=== PATIENT | female | born 1960 | race Hispanic/Latino ===

== ENCOUNTER → 2020-06-04 13:43 | Outpatient (CLI) | payer MEDICARE, SELFPAY ==
--- NOTE | 2020-06-04 13:51 | DI.US.S_ITS ---
PROCEDURE: US THYROID INDICATIONS: osteoporosis Nontoxic single thyroid nodule TECHNIQUE: Real-time scanning was performed of the thyroid gland, with image documentation. COMPARISON: None. FINDINGS: Right: Thyroid lobe measures 5 x 1.6 x 1.6 cm, and is homogeneous in echotexture. Left: Thyroid lobe measures 5.1 x 1.8 x 1.4 cm, and is homogenous in echotexture. Isthmus: 7 mm thick. Nodule number: 1 Location: Right mid Size: 0.7 x 0.6 x 0.6 cm. Composition: Predominantly cystic Echogenicity: Hypoechoic Shape: wider than tall. Margins: Smooth Echogenic foci: None Total points: 2 ACR TI-RADS category: TR 2, not suspicious Nodule number: 2 Location: Left mid inferior Size: 1 x 0.9 x 0.8 cm. Composition: Solid Echogenicity: Isoechoic Shape: wider than tall. Margins: Smooth Echogenic foci: None Total points: 3 ACR TI-RADS category: TR 3, mildly suspicious Nodule number: 3 Location: Left mid Size: 0.8 x 0.7 x 0.5 cm. Composition: Solid Echogenicity: Hyperechoic Shape: wider than tall. Margins: Smooth Echogenic foci: None Total points: 3 ACR TI-RADS category: TR 3, mildly suspicious Nodule number: 4 Location: Isthmus Size: 0.9 x 0.7 x 0.4 cm. Composition: Predominantly solid Echogenicity: Isoechoic Shape: wider than tall. Margins: Smooth Echogenic foci: None Total points: 3 ACR TI-RADS category: TR 3, mildly suspicious IMPRESSION: Several small thyroid nodules. No nodules meeting criteria for recommended follow-up ultrasound. ACR TI-RADS definitions and recommendations: TI-RADS 1 (benign): 0 points. FNA not needed. TI-RADS 2 (not suspicious): 2 points. FNA not needed. TI-RADS 3 (mildly suspicious): 3 points. * FNA if 2.5 cm or larger, follow up if 1.5 cm or larger (at 1, 3, and 5 years). TI-RADS 4 (moderately suspicious): 4-6 points. * FNA if 1.5 cm or larger, follow up if 1 cm or larger (at 1, 2, 3, and 5 years). TI-RADS 5 (highly suspicious): 7 points or more. * FNA if 1 cm or larger, follow up if 0.5 cm or larger (every year for 5 years). Dictated by: Nico Keene M.D. on 06/06/2020 at 7:06 Approved by: Nico Keene M.D. on 06/06/2020 at 7:17
== END ==
PROVIDERS: PCP Nurse Practitioner Family; Referring Provider Nurse Practitioner Family; Visit Provider Nurse Practitioner Family
DX: E04.2 Nontoxic multinodular goiter; M85.852 Other specified disorders of bone density and structure, left thigh; Z78.0 Asymptomatic menopausal state; Z72.0 Tobacco use
CPT/HCPCS: 76536; 77080

== ENCOUNTER → 2020-06-22 11:38 | Outpatient (CLI) | payer MEDICARE, SELFPAY ==
--- NOTE | 2020-06-22 11:40 | DI.RAD.S_ITS ---
PROCEDURE: XR LUMBAR SPINE MIN 4V INDICATIONS: PAIN/RADICULOPATHY TECHNIQUE: 5 views of the lumbar spine acquired, including flexion and extension views. COMPARISON: [facility], CR, XR LUMBAR SPINE WITH OBLIQUES, 11/30/2018, 17:22. FINDINGS: Bones: No acute fracture. Postsurgical change related to L4-L5 dynamic posterior fixation. There is also interbody cage graft at L4-L5. Grade 1 residual anterolisthesis of L4 on L5, grossly unchanged. Moderate L5-S1 disc degeneration. Remaining disc spaces appear preserved. Multilevel spondylosis/endplate changes. Diffuse facet arthropathy. Partially visualized lateral curvature of the spine. No evidence of abnormal motion with dynamic flexion and extension lateral views. Soft tissues: Overlying bowel gas pattern is normal. No suspicious soft tissue calcifications. IMPRESSION: Chronic spondylitic and postsurgical sequela as above. No definite interval change since 11/30/18. No evidence of abnormal motion with dynamic flexion and extension lateral views. Dictated by: Lamont Michaud M.D. on 06/22/2020 at 12:49 Approved by: Lamont Michaud M.D. on 06/22/2020 at 12:51
--- NOTE | 2020-06-22 11:40 | DI.RAD.S_ITS ---
PROCEDURE: XR CERVICAL SPINE 2V OR 3V INDICATIONS: CERVICALGIA TECHNIQUE: 2 view(s) of the cervical spine were acquired. COMPARISON: None. FINDINGS: Bones: No acute fracture seen. Postsurgical changes related to ACDF at C4-C6. Hardware appears intact. Straightening of the normal lordotic curvature. Severe narrowing of the C6-C7 disc space. Mild narrowing of the remaining disc spaces. Grade 1 anterolisthesis of C2 on C3. Grade 1 anterolisthesis of C6 on C7. Soft tissues: No prevertebral soft tissue swelling. IMPRESSION: Postsurgical changes from C4-C6 as above. Severe disc degeneration at the inferior unfused segment of C6-C7. Dictated by: Lamont Michaud M.D. on 06/22/2020 at 12:47 Approved by: Lamont Michaud M.D. on 06/22/2020 at 12:49
== END ==
PROVIDERS: PCP Nurse Practitioner Family; Referring Provider Registered Nurse; Visit Provider Registered Nurse
DX: M51.16 Intervertebral disc disorders with radiculopathy, lumbar region (principal); M50.323 Other cervical disc degeneration at C6-C7 level; M43.12 Spondylolisthesis, cervical region; M43.16 Spondylolisthesis, lumbar region; Z98.1 Arthrodesis status
CPT/HCPCS: 72040; 72110

== ENCOUNTER → 2020-08-21 13:08 | Outpatient (CLI) | payer MEDICARE, SELFPAY ==
--- NOTE | 2020-08-21 | DI.MRI.S_ITS ---
PROCEDURE: MR LUMBAR SPINE WO CON INDICATIONS: Radiculopathy, lumbar region TECHNIQUE: Noncontrast sagittal T1 spin echo and T2 fast echo, sagittal STIR, axial T1 and T2 fast spin echo through the lumbar spine. In cases with scoliosis, additional coronal T2 fast spin echo may be performed. COMPARISON: [facility], CT, CT LUMBAR SPINE WITHOUT CONTRAST, 11/06/2018, 1:09. [facility], MR, MR LUMBAR SPINE WO CON, 12/31/2015, 13:25. FINDINGS: Image quality: Excellent. Alignment and Curvature: There is mild L4-L5 anterolisthesis. Bones: Postsurgical changes compatible with L4-L5 TLIF. Reactive endplate changes noted adjacent the L4-L5 disc. No acute vertebral body compression fractures. Spinal Cord: Conus medullaris terminates at the L1 level. Visualized cord demonstrates normal signal and size. Paraspinous Soft Tissues: No paravertebral masses. T12-L1: Normal appearance. L1-L2: Normal appearance. L2-L3: Loss of disc signal. Mild, diffuse disc bulge. Mild narrowing of the central canal. Mild bilateral neural foraminal narrowing. No neural compression. L3-L4: Loss of disc signal. Mild, diffuse disc bulge. Mild narrowing of the central canal. No neural foraminal narrowing. No neural compression. L4-L5: Status post fusion. No central stenosis. Mild left neural foraminal narrowing. No neural compression. L5-S1: Loss of disc signal. Mild, diffuse disc bulge. Small right central disc protrusion. Moderate right and mild left facet hypertrophy. No central stenosis. Moderate to severe right neural foraminal narrowing with slight compression of the exiting right L5 nerve root. IMPRESSION: 1. Status post L4-L5 TLIF. 2. Multilevel degenerative disc disease. 3. Multilevel facet arthropathy. 4. No severe central canal narrowing. 5. Moderate to severe right L5-S1 neural foraminal narrowing with slight compression of the exiting right L5 nerve root. Dictated by: Mi Valenzuela MD, PhD on 08/21/2020 at 16:49 Approved by: Mi Valenzuela MD, PhD on 08/21/2020 at 16:54
== END ==
PROVIDERS: PCP Nurse Practitioner Family; Referring Provider Registered Nurse; Visit Provider Registered Nurse
DX: M51.16 Intervertebral disc disorders with radiculopathy, lumbar region (principal); M51.17 Intervertebral disc disorders with radiculopathy, lumbosacral region; M47.26 Other spondylosis with radiculopathy, lumbar region; M47.27 Other spondylosis with radiculopathy, lumbosacral region; M48.07 Spinal stenosis, lumbosacral region; M48.061 Spinal stenosis, lumbar region without neurogenic claudication; Z98.1 Arthrodesis status
CPT/HCPCS: 72148